=== PATIENT | female | born 1965 | race Caucasian/White ===

== ENCOUNTER 2021-08-31 03:24 | Emergency (ER) | payer OTHER ==
[2021-08-31 03:36] VITALS: BP 156/94; PULSE 82; TEMP 100.7; BMI 43.9
[2021-08-31] MEDS ORDERED: DIPHTH,PERTUSS(ACELL),TET 0.5 ML DISP.SYRIN IM ONE ×2 (04:48→04:51)
[2021-08-31] MEDS ORDERED: ACETAMINOPHEN 325 MG TABLET (FP) PO ONE (04:48)
[2021-08-31] MEDS ORDERED: ACETAMINOPHEN 325 MG TABLET (FP) ONE (04:50)
[2021-09-04 16:07] LABS: SARS-CoV-2 NAA Detected (Not Detected)
== END 2021-08-31 06:14 | disposition home or self-care (01) ==
LOC: JER 03:24
PROC: 3E0234Z Introduction of Serum, Toxoid and Vaccine into Muscle, Percutaneous Approach (ICD-10-PCS; principal; 2021-08-31)
DX: S00.83XA Contusion of other part of head, initial encounter (principal); Y04.8XXA Assault by other bodily force, initial encounter
CPT/HCPCS: 70460-TC; 70486-TC; 71101-TC-LT-FY; 72125-TC; 90471; 90715; 99284-25; C9803; U0003; U0005